=== PATIENT | male | born 1980 | race African-American/Black ===

== ENCOUNTER 2017-04-11 13:01 | Emergency (ER) | payer MEDICAID ==
[~2017-04-11] VITALS: Ht 185.4 cm; Wt 105.0 kg
[2017-04-11 13:23] VITALS: BP 143/79
== END 2017-04-11 17:27 | disposition left against medical advice (07) ==
LOC: ER 13:58
DX: H61.23 Impacted cerumen, bilateral (principal); B34.9 Viral infection, unspecified; F17.210 Nicotine dependence, cigarettes, uncomplicated; Z88.0 Allergy status to penicillin
CPT/HCPCS: 99281

== ENCOUNTER 2017-06-22 07:39 | Emergency (ER) | payer MEDICAID ==
[~2017-06-22] VITALS: Ht 172.7 cm; Wt 100.0 kg
[2017-06-22 07:43] VITALS: BP 131/73
[2017-06-22 09:06] LABS: CLARITY URINE CLEAR (CLEAR); COLOR URINE YELLOW (YELLOW); KETONES URINE NEGATIVE (NEGATIVE); LEUKOCYTE ESTERASE URINE NEGATIVE (NEGATIVE); NITRITE URINE NEGATIVE (NEGATIVE); OCCULT BLOOD URINE NEGATIVE (NEGATIVE); PH URINE 5.5 (4.5-8.0); PROTEIN URINE NEGATIVE (NEGATIVE); SPECIFIC GRAVITY URINE 1.025 (1.005-1.030); UROBILINOGEN URINE 0.2 E.U./dL (0.2-1.0)
== END 2017-06-22 09:21 | disposition home or self-care (01) ==
LOC: ER 07:58
DX: J06.9 Acute upper respiratory infection, unspecified (principal); F17.200 Nicotine dependence, unspecified, uncomplicated; F12.10 Cannabis abuse, uncomplicated; Z88.0 Allergy status to penicillin
CPT/HCPCS: 71045; 81003; 99285

== ENCOUNTER 2017-12-05 13:41 | Emergency (ER) | payer MEDICAID ==
[~2017-12-05] VITALS: Ht 185.4 cm; Wt 100.0 kg
[2017-12-05 19:45] VITALS: BP 130/72
== END 2017-12-05 21:01 | disposition home or self-care (01) ==
LOC: ER 16:07
DX: S00.12XA Contusion of left eyelid and periocular area, initial encounter (principal); R40.4 Transient alteration of awareness; F12.10 Cannabis abuse, uncomplicated; Z88.0 Allergy status to penicillin; Y04.0XXA Assault by unarmed brawl or fight, initial encounter; Y93.89 Activity, other specified; Y92.89 Other specified places as the place of occurrence of the external cause; Y99.8 Other external cause status
CPT/HCPCS: 70450; 70486; 99284; Z7610

== ENCOUNTER 2019-01-26 06:27 | Emergency (ER) | payer MEDICAID ==
[~2019-01-26] VITALS: Ht 185.4 cm; Wt 98.0 kg
[2019-01-26 07:58] LABS: EOSINOPHILS % 0.6 % (0.0-5.0); HEMATOCRIT. 40.9 % (42.0-52.0); HEMOGLOBIN. 13.9 g/dL (14.0-18.0); MEAN CORPUSCULAR HEMOGLOBIN 29.9 pg (28.0-32.0); MEAN PLATELET VOLUME 8.4 fl (7.4-10.4); MONOCYTES % 12.3 % (2.0-8.0); NEUTROPHILS % 58.1 % (40.0-76.0); PLATELET 250 x1000/uL (130-400); RED BLOOD CELL COUNT 4.64 mill/uL (4.7-6.1); RED CELL DISTRIBUTION WIDTH 13.8 % (11.6-14.6)
[2019-01-26 08:03] LABS: CHLORIDE 106 mEq/L (98-107)
[2019-01-26] MEDS ORDERED: IOHEXOL-300 50 ML BOTTLE IV ONE (08:35)
[2019-01-26] MEDS ORDERED: IOHEXOL-300 100 ML BOTTLE ONE (08:36)
[2019-01-26 10:24] VITALS: BP 131/83
== END 2019-01-26 10:30 | disposition home or self-care (01) ==
LOC: ER 06:27
DX: K57.90 Diverticulosis of intestine, part unspecified, without perforation or abscess without bleeding (principal); K76.0 Fatty (change of) liver, not elsewhere classified; F12.90 Cannabis use, unspecified, uncomplicated; Z88.0 Allergy status to penicillin
CPT/HCPCS: 36415; 74176; 80053; 83690; 85025; 99284; Q9967; Z7610

== ENCOUNTER 2019-06-07 20:33 | Emergency (ER) | payer MEDICAID ==
[~2019-06-07] VITALS: Ht 182.9 cm; Wt 86.1 kg
[2019-06-07] MEDS ORDERED: LIDOCAINE HCL/PF 1% 10 MG/ML 5ML VIAL IJ ONE (21:15)
[2019-06-07] MEDS ORDERED: IBUPROFEN 600MG TABLET PO ONE (21:15)
[2019-06-07 22:19] VITALS: BP 145/85
== END 2019-06-07 22:20 | disposition home or self-care (01) ==
LOC: ER 20:33
DX: K05.219 Aggressive periodontitis, localized, unspecified severity (principal); E11.9 Type 2 diabetes mellitus without complications; Z88.0 Allergy status to penicillin
CPT/HCPCS: 10060; 99283; J3490

== ENCOUNTER 2019-07-27 17:34 | Emergency (ER) | payer MEDICAID ==
[~2019-07-27] VITALS: Ht 182.9 cm; Wt 88.0 kg
[2019-07-27] MEDS ORDERED: HALOPERIDOL LACTATE 5MG/ML VIAL IM ONE (18:45)
[2019-07-27] MEDS ORDERED: LORAZEPAM 2MG/ML CPJ IM ONE (18:45)
[2019-07-28 01:15] VITALS: BP 142/90
== END 2019-07-28 05:20 | disposition home or self-care (01) ==
LOC: ER 17:34
DX: F10.129 Alcohol abuse with intoxication, unspecified (principal); R45.1 Restlessness and agitation; R47.81 Slurred speech; R00.0 Tachycardia, unspecified; E11.9 Type 2 diabetes mellitus without complications; F12.10 Cannabis abuse, uncomplicated; F17.290 Nicotine dependence, other tobacco product, uncomplicated; Z88.0 Allergy status to penicillin; Y90.9 Presence of alcohol in blood, level not specified
CPT/HCPCS: 96372; 99285; 99406; J1630; J2060

== ENCOUNTER 2024-05-30 10:34 | Emergency (ER) | payer MEDICAID ==
[~2024-05-30] VITALS: Ht 182.9 cm; Wt 82.0 kg
[2024-05-30 10:37] VITALS: O2SAT 99
[2024-05-30 11:41] LABS: BASOPHILS % 0.7 % (0.0-2.0); HEMATOCRIT. 46.6 % (42.0-52.0); HEMOGLOBIN. 15.1 g/dL (14.0-18.0); LYMPHOCYTES % 12.3 % (20.0-50.0); MEAN CORPUSCULAR HEMOGLOBIN 29.3 pg (28.0-32.0); MEAN CORPUSCULAR HGB CONC 32.3 g/dL (31.0-37.0); MEAN CORPUSCULAR VOLUME 90.5 fL (80.0-94.0); MEAN PLATELET VOLUME 7.8 fl (7.4-10.4); MONOCYTES % 3.8 % (2.0-8.0); NEUTROPHILS % 83.2 % (40.0-76.0); PLATELET 251 x1000/uL (130-400); RED BLOOD CELL COUNT 5.15 mill/uL (4.7-6.1); RED CELL DISTRIBUTION WIDTH 14.8 % (11.6-14.6); WHITE BLOOD COUNT 7.7 x1000/uL (4.5-11.0)
[2024-05-30] MEDS: SODIUM CHLORIDE 0.9% 1,000 ML IV ONE (11:42)
[2024-05-30 11:54] LABS: CHLORIDE 107 mEq/L (98-107); POTASSIUM 4.4 mEq/L (3.5-5.1); SODIUM 143 mEq/L (136-145)
[2024-05-30 11:55] LABS: CALCIUM 9.9 mg/dL (8.7-10.4); CARBON DIOXIDE 21 mEq/L (21-32)
[2024-05-30 12:00] LABS: CREATININE 0.9 mg/dL (0.6-1.3); GLUCOSE 108 mg/dL (70-105); UREA NITROGEN BLOOD 16 mg/dL (9-23)
[2024-05-30 12:16] LABS: TROPONIN I HIGH SENSITIVITY < 4 ng/L (3.0-53)
[2024-05-30 16:40] LABS: CLARITY URINE CLEAR (CLEAR); COLOR URINE YELLOW (YELLOW); GLUCOSE URINE 3+ (NEGATIVE); KETONES URINE 4+ (NEGATIVE); NITRITE URINE NEGATIVE (NEGATIVE); OCCULT BLOOD URINE NEGATIVE (NEGATIVE); PROTEIN URINE NEGATIVE (NEGATIVE); SPECIFIC GRAVITY URINE 1.032 (1.005-1.030)
[2024-05-30 16:41] LABS: LEUKOCYTE ESTERASE URINE NEGATIVE (NEGATIVE)
[2024-05-30] MEDS ORDERED: IBUP-1525 MT (17:02)
[2024-05-30] MEDS ORDERED: TOPUD MT (17:02)
[2024-05-30] MEDS ORDERED: ONDA4TAB50 MT (17:02)
[2024-05-30 17:06] LABS: BACTERIA URINE NONE SEEN; RBC URINE NONE SEEN /hpf (0-2); WBC URINE NONE SEEN /hpf (0-2)
[2024-05-30 17:17] VITALS: BP 130/70; PULSE 68; RESP 18; TEMP 36.5; O2SAT 99
== END 2024-05-30 17:20 | disposition home or self-care (01) ==
LOC: ER 10:34
DX: R11.2 Nausea with vomiting, unspecified (principal); F12.10 Cannabis abuse, uncomplicated; E11.9 Type 2 diabetes mellitus without complications; I49.9 Cardiac arrhythmia, unspecified; Z88.0 Allergy status to penicillin
CPT/HCPCS: 99284; 96360; 80048; 81003; 85025; 84484; 36415; 93005; J7030